=== PATIENT | male | born 1950 | race Caucasian/White ===

== ENCOUNTER 2023-08-16 09:23 | Inpatient (IN) ==
--- NOTE | 2023-08-16 09:44 | DR.URIAD ---
HPI Time Seen Time Seen by Provider: 08/16/23 09:43 PCP Primary Care Physician: Ellie Mendoza Complaint Chief Complaint Doctors Comments: Patient states that he can't breath. He has been feeling sob x 2 weeks. 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 Patient states that he has also has cough productive of yellow sputum and weakness. He presents because he has worsening SOB today. Patient denies: fever,n,v,chest pain,abdl pain,back pain,syncope.Patient does not have supplemental 02 at home. Chief Complaint:: Shortness of breath and congestion Self Treatment fo Chief Complaint: Rescue Inhaler COVID-19 Coronavirus risk:travel/contact w/high risk person: No Has patient experienced Coronavirus symptoms: No Source History Provided: Patient Mode of Arrival Mode of Arrival: Ambulatory Timing Onset of Chief Complaint: 08/10/23 PMH PMH Past Medical History: Yes Past Medical History: Arthritis Past Surgical History: Yes Surgical History: Appendectomy and Tonsillectomy Past Surgical History Comment: Stomach removal, Gtube-placement and removal Family History History of Family Medical Conditions: Yes Family Medical History: Diabetes Mellitus, Cancer, [place], Heart Failure and Hypertension Social History Alcohol Use: None Do you use any recreational Drugs:: No Lives With: Spouse Lives Where: Home Travel Risk Coronavirus risk:travel/contact w/high risk person: No Has patient experienced Coronavirus symptoms: No Infectious screening Have you traveled outside the country in the last 6 months?: No Isolation: Standard ROS Review of Systems Constitutional: No Symptoms Reported Eyes: No Symptoms Reported ENTM: No Symptoms Reported Respiratoy: Productive Cough (yellow) and Short of Breath Cardiovascular: No Symptoms Reported Gastrointestinal/Abdominal: No Symptoms Reported Genitourinary: No Symptoms Reported Neurological: No Symptoms Reported Musculoskeletal: No Symptoms Reported Integumentary: No Symptoms Reported Hematologic/Lymphatic: No Symptoms Reported Endocrine: No Symptoms Reported Psychiatric: No Symptoms Reported All Other Systems: Reviewed and Negative PE Vital Signs Vitals: Vital Signs Temperature 97.6 F Pulse Rate 76 Pulse Rate 76 Respiratory Rate 18 Blood Pressure 137/65 O2 Sat by Pulse Oximetry 95 O2 Sat by Pulse Oximetry 95 General Limitations: No Limitations General Appearance: Alert and In No Apparent Distress Head Head Exam: Normal Inspection Eyes Eye exam: Normal Appearance ENT ENT Exam: Normal Exam External Ear Exam: Normal External Inspection TM/Canal Exam: Bilateral: Normal Nose Exam: Normal Nose Exam Nasal Speculum Exam: Bilateral: Normal Mouth Exam: Normal Inspection Throat Exam: Normal Inspection Neck Neck Exam: Normal Inspection Chest Chest Inspection: Normal Inspection Respiratory Respiratory Exam: Normal Lung Sounds Bilat Respiratory Exam: Bilateral: Clear to Auscultation Cardiovascular Cardiovascular Exam: Regular Rate and Normal Rhythm Abdominal Exam Abdominal Exam: Normal Inspection, Normal Bowel Sounds and Soft Extremeties Extremities Exam: Normal Inspection Back Back Exam: Normal Inspection Neurologic Neurological Exam: Alert and Oriented X3 Psychiatric Psychiatric Exam: Normal Affect and Normal Mood Skin Skin Exam: Warm, Dry, Intact and Normal Color MDM Differential Diagnosis Differential Diagnosis: Influenza A, Influenza B, Pneumonia and URI (Covid- 19,RSV) COURSE Treatment Treatment: Patient states that he had stomach cancer ( diagnosd 03/2011) and had Radiation therapy and chemotherapy. He states that he is scanned once a yr. Patient states that he was told that he has scarring in his lungs. Patient's CXR was read by the radiologist as Bilateral Pneumonia with small Pleural effusions. Patient will be given levaquin 750mg iv. He has received duonebs x 2,solumedrol 125mg iv. Dr Quevedo was consulted and has accepted patient to his service. Patient has been stable in the ED. [facility] Labs Reviewed 08/16/23 11:30 08/16/23 11:30 Laboratory: WBC 8.5 X10^3/uL (3.6-10.0) 08/16/23 11:30 RBC 3.82 X10^6/uL (4.7-6.0) L 08/16/23 11:30 Hgb 11.6 g/dL (13.5-18.0) L 08/16/23 11:30 Hct 34.9 % (42.0-54.0) L 08/16/23 11:30 MCV 91.3 fL (80.0-100.0) 08/16/23 11:30 MCH 30.3 pg (27.0-34.0) 08/16/23 11:30 MCHC 33.2 g/dL (33.0-35.0) 08/16/23 11:30 RDW 14.4 % (11.6-16.5) 08/16/23 11:30 Plt Count 260 X10^3/uL (150.0-450.0) 08/16/23 11:30 Plt Count Comment Adequate (ADEQUATE) 08/16/23 11:30 MPV 9.8 fL (7.4-11.0) 08/16/23 11:30 Neut % (Auto) 86.5 % (42.0-75.0) H 08/16/23 11:30 Lymph % (Auto) 6.2 % (21.0-51.0) L 08/16/23 11:30 [place] % (Auto) 5.7 % (0.0-13.0) 08/16/23 11:30 Eos % (Auto) 0.8 % (0.9-2.9) L 08/16/23 11:30 Baso % (Auto) 0.8 % (0.2-1.0) 08/16/23 11:30 Neut # (Auto) 6.9 x10^3/uL (2.2-4.8) H 08/16/23 11:30 Lymph # (Auto) 0.5 X10^3/uL (1.3-2.9) L 08/16/23 11:30 [place] # (Auto) 0.5 x10^3/uL (0.3-0.8) 08/16/23 11:30 Eos # (Auto) 0.1 x10^3/uL (0.0-0.2) 08/16/23 11:30 Baso # (Auto) 0.1 X10^3/uL (0.0-0.1) 08/16/23 11:30 Absolute Nucleated RBC 0.5 /100WBC 08/16/23 11:30 Plt Morphology Comment Normal (NORMAL) 08/16/23 11:30 RBC Morphology Normal (NORMAL) 08/16/23 11:30 Sample Site Rrad 08/16/23 11:45 ABG pH 7.400 (7.35-7.45) 08/16/23 11:45 ABG pCO2 36.0 mmHg (35.0-45.0) 08/16/23 11:45 ABG pO2 59.0 mmHg (80.0-100.0) L 08/16/23 11:45 ABG HCO3 22.3 mmol/L (22-26) 08/16/23 11:45 ABG O2 Saturation 90.0 % (90-100) 08/16/23 11:45 ABG Base Excess -2.1 mmol/L (-2.0-2.0) L 08/16/23 11:45 Dimas Test Pos 08/16/23 11:45 A-a Gradient 46.0 mmHg 08/16/23 11:45 FiO2 21.0 08/16/23 11:45 Blood Gas Comments Pt joaquin well elj cdn 08/16/23 11:45 Sodium 137 mmol/L (136-145) 08/16/23 11:30 Corrected Sodium TNP 08/16/23 11:30 Potassium 4.6 mmol/L (3.5-5.1) 08/16/23 11:30 Chloride 102 mmol/L (98-107) 08/16/23 11:30 Carbon Dioxide 25.4 mmol/L (21-32) 08/16/23 11:30 BUN 24 mg/dL (7-18) H 08/16/23 11:30 Creatinine 1.94 mg/dL (0.70-1.30) H 08/16/23 11:30 Est GFR (MDRD) Af Amer 44 (>60) L 08/16/23 11:30 Est GFR (MDRD) Non-Af 36 (>60) L 08/16/23 11:30 Glucose 106 mg/dL (65-99) H 08/16/23 11:30 Calcium 8.5 mg/dL (8.5-10.1) 08/16/23 11:30 Corrected Calcium 9.3 mg/dL (8.5-10.1) 08/16/23 11:30 Total Bilirubin 0.50 mg/dL (0.2-1.0) 08/16/23 11:30 AST 27 Units/L (15-37) 08/16/23 11:30 ALT 12 Units/L (12-78) 08/16/23 11:30 Alkaline Phosphatase 137 Units/L (46-116) H 08/16/23 11:30 Total Protein 7.8 g/dL (6.4-8.2) 08/16/23 11:30 Albumin 3.0 g/dL (3.4-5.0) L 08/16/23 11:30 Globulin 4.8 g/dL (2.5-4.5) H 08/16/23 11:30 Albumin/Globulin Ratio 0.6 Ratio (1.1-2.1) L 08/16/23 11:30 SARS-CoV-2 (PCR) Negative (NEGATIVE) 08/16/23 09:41 Influenza Type A (PCR) Negative (NEGATIVE) 08/16/23 09:41 Influenza Type B (PCR) Negative (NEGATIVE) 08/16/23 09:41 RSV (PCR) Negative (NEGATIVE) 08/16/23 09:41 Opioid Opioid Risk Tool Age (Travis box if 16-45): No Total: 0 Total Score Risk Category: Low Risk Copyright: [facility] predicting aberrant behaviors Discharge Plan Diagnosis Discharge Problem: Bilateral pneumonia, Acute exacerbation of chronic bronchitis, Hypoxemia Discharge Plan Patient Disposition: ADMITTED INPATIENT Condition: Stable Prescriptions: No Action morphine 10 mg/5 mL solution 15 mg PO Q4H escitalopram oxalate 10 mg tablet 10 mg PO QDAY Health Concerns: Post Hospitalization: new medications and changes needed to prevent readmission or further decline. Pt educated and given instructions on all concerns. Plan of Treatment: Continue with present treatment and follow up plan. Pt is to keep follow up appointment as instructed and take medications as ordered. Orders to Discharge Patient Discharge Orders: Transfer (Routine); Ordered 08/16/23 Ordered By: Carrie Mensah Follow ups/Referrals Follow ups/Referrals: JACKLYN CARREON [Primary Care Provider] - 3 days Instructions Stand Alone Forms: Post Hospital Follow Up Care
[2023-08-16] MEDS ORDERED: DUONEB 0.5 MG/3 MG (3 mL) NEB ONE (11:02)
[2023-08-16] MEDS: DUONEB 0.5 MG/3 MG (3 mL) NEB ONE ×2 (11:07→12:48)
[2023-08-16] MEDS: SOLU-Medrol 125 MG VIAL IVP ONE (11:09)
[2023-08-16] MEDS: SOLU-Medrol 125 MG VIAL IM ONE (11:10)
[2023-08-16 11:50] LABS: ABG BASE EXCESS -2.1 mmol/L (-2.0-2.0); ABG HCO3 22.3 mmol/L (22-26)
[2023-08-16 11:51] LABS: ABG ALLEN TEST POS
[2023-08-16 11:58] LABS: BASOPHILS # (AUTO) 0.1 X10^3/uL (0.0-0.1); EOSINOPHILS # (AUTO) 0.1 x10^3/uL (0.0-0.2); MEAN CORPUSCULAR HEMOGLOBIN 30.3 pg (27.0-34.0)
[2023-08-16 12:03] LABS: BASOPHILS % (AUTO) 0.8 % (0.2-1.0); EOSINOPHILS % (AUTO) 0.8 % (0.9-2.9); HEMATOCRIT 34.9 % (42.0-54.0); HEMOGLOBIN 11.6 g/dL (13.5-18.0); LYMPHOCYTES # (AUTO) 0.5 X10^3/uL (1.3-2.9); LYMPHOCYTES % (AUTO) 6.2 % (21.0-51.0); MEAN CORPUSCULAR HGB CONC 33.2 g/dL (33.0-35.0); MEAN CORPUSCULAR VOLUME 91.3 fL (80.0-100.0); MEAN PLATELET VOLUME 9.8 fL (7.4-11.0); MONOCYTES # (AUTO) 0.5 x10^3/uL (0.3-0.8); MONOCYTES % (AUTO) 5.7 % (0.0-13.0); NEUTROPHILS # (AUTO) 6.9 x10^3/uL (2.2-4.8); NEUTROPHILS % (AUTO) 86.5 % (42.0-75.0); PLATELET COUNT 260 X10^3/uL (150.0-450.0); RED BLOOD COUNT 3.82 X10^6/uL (4.7-6.0); RED CELL DISTRIBUTION WIDTH 14.4 % (11.6-16.5)
[2023-08-16 12:06] LABS: ALANINE AMINOTRANSFERASE 12 Units/L (12-78); ALKALINE PHOSPHATASE 137 Units/L (46-116); ASPARTATE AMINO TRANSFERASE 27 Units/L (15-37); BLOOD UREA NITROGEN 24 mg/dL (7-18); CALCIUM 8.5 mg/dL (8.5-10.1); CARBON DIOXIDE 25.4 mmol/L (21-32); CHLORIDE 102 mmol/L (98-107); COR CA(FOR HYPOALB) 9.3 mg/dL (8.5-10.1); CREATININE 1.94 mg/dL (0.70-1.30); GLUCOSE 106 mg/dL (65-99); POTASSIUM 4.6 mmol/L (3.5-5.1); SODIUM 137 mmol/L (136-145); TOTAL PROTEIN 7.8 g/dL (6.4-8.2); eGFR NON BLACK RACES 36 (>60)
[2023-08-16 12:27] LABS: PLATELET MORPHOLOGY COMMENT NORMAL (NORMAL)
[2023-08-16 12:28] LABS: WHITE BLOOD COUNT 8.5 X10^3/uL (3.6-10.0)
--- NOTE | 2023-08-16 12:46 | RAD ---
EXAM:CHEST, 1 VIEWHISTORY:Shortness of breath and congestion; cough productive green sputumCOMPARISON:None.FINDINGS:SUPPORT DEVICES: None.HEART/MEDIASTINUM: No significant abnormality.LUNGS: Small pleural effusions with bilateral airspace opacities seen mainly along the mid to lower lungs. No pneumothorax.ADDITIONAL FINDINGS: None.IMPRESSION:Suspected bilateral pneumonia with small pleural effusions.THIS IS AN ELECTRONICALLY VERIFIED FINAL REPORT08/16/2023 12:44 PM - Electronically signed by Sergio Campbell MD
--- NOTE | 2023-08-16 13:16 | DR.URIAD ---
HPI Time Seen Time Seen by Provider: 08/16/23 09:43 PCP Primary Care Physician: Ellie Mendoza Complaint Chief Complaint:: Shortness of breath and congestion Self Treatment fo Chief Complaint: Rescue Inhaler COVID-19 Coronavirus risk:travel/contact w/high risk person: No Has patient experienced Coronavirus symptoms: No Source History Provided: Patient Mode of Arrival Mode of Arrival: Ambulatory Timing Onset of Chief Complaint: 08/10/23 PMH PMH Past Medical History: Yes Past Medical History: Arthritis Past Surgical History: Yes Surgical History: Appendectomy and Tonsillectomy Past Surgical History Comment: Stomach removal, Gtube-placement and removal Family History History of Family Medical Conditions: Yes Family Medical History: Diabetes Mellitus, Cancer, [place], Heart Failure and Hypertension Social History Alcohol Use: None Do you use any recreational Drugs:: No Lives With: Spouse Lives Where: Home Travel Risk Coronavirus risk:travel/contact w/high risk person: No Has patient experienced Coronavirus symptoms: No Infectious screening Have you traveled outside the country in the last 6 months?: No Isolation: Standard PE Vital Signs Vitals: Vital Signs Temperature 97.6 F Pulse Rate 76 Pulse Rate 76 Respiratory Rate 18 Blood Pressure 137/65 O2 Sat by Pulse Oximetry 95 O2 Sat by Pulse Oximetry 95 ROR Labs Reviewed 08/16/23 11:30 08/16/23 11:30 Laboratory: WBC 8.5 X10^3/uL (3.6-10.0) 08/16/23 11:30 RBC 3.82 X10^6/uL (4.7-6.0) L 08/16/23 11:30 Hgb 11.6 g/dL (13.5-18.0) L 08/16/23 11:30 Hct 34.9 % (42.0-54.0) L 08/16/23 11:30 MCV 91.3 fL (80.0-100.0) 08/16/23 11:30 MCH 30.3 pg (27.0-34.0) 08/16/23 11:30 MCHC 33.2 g/dL (33.0-35.0) 08/16/23 11:30 RDW 14.4 % (11.6-16.5) 08/16/23 11:30 Plt Count 260 X10^3/uL (150.0-450.0) 08/16/23 11:30 Plt Count Comment Adequate (ADEQUATE) 08/16/23 11:30 MPV 9.8 fL (7.4-11.0) 08/16/23 11:30 Neut % (Auto) 86.5 % (42.0-75.0) H 08/16/23 11:30 Lymph % (Auto) 6.2 % (21.0-51.0) L 08/16/23 11:30 [place] % (Auto) 5.7 % (0.0-13.0) 08/16/23 11:30 Eos % (Auto) 0.8 % (0.9-2.9) L 08/16/23 11:30 Baso % (Auto) 0.8 % (0.2-1.0) 08/16/23 11:30 Neut # (Auto) 6.9 x10^3/uL (2.2-4.8) H 08/16/23 11:30 Lymph # (Auto) 0.5 X10^3/uL (1.3-2.9) L 08/16/23 11:30 [place] # (Auto) 0.5 x10^3/uL (0.3-0.8) 08/16/23 11:30 Eos # (Auto) 0.1 x10^3/uL (0.0-0.2) 08/16/23 11:30 Baso # (Auto) 0.1 X10^3/uL (0.0-0.1) 08/16/23 11:30 Absolute Nucleated RBC 0.5 /100WBC 08/16/23 11:30 Plt Morphology Comment Normal (NORMAL) 08/16/23 11:30 RBC Morphology Normal (NORMAL) 08/16/23 11:30 Sample Site Rrad 08/16/23 11:45 ABG pH 7.400 (7.35-7.45) 08/16/23 11:45 ABG pCO2 36.0 mmHg (35.0-45.0) 08/16/23 11:45 ABG pO2 59.0 mmHg (80.0-100.0) L 08/16/23 11:45 ABG HCO3 22.3 mmol/L (22-26) 08/16/23 11:45 ABG O2 Saturation 90.0 % (90-100) 08/16/23 11:45 ABG Base Excess -2.1 mmol/L (-2.0-2.0) L 08/16/23 11:45 Dimas Test Pos 08/16/23 11:45 A-a Gradient 46.0 mmHg 08/16/23 11:45 FiO2 21.0 08/16/23 11:45 Blood Gas Comments Pt joaquin well elj cdn 08/16/23 11:45 Sodium 137 mmol/L (136-145) 08/16/23 11:30 Corrected Sodium TNP 08/16/23 11:30 Potassium 4.6 mmol/L (3.5-5.1) 08/16/23 11:30 Chloride 102 mmol/L (98-107) 08/16/23 11:30 Carbon Dioxide 25.4 mmol/L (21-32) 08/16/23 11:30 BUN 24 mg/dL (7-18) H 08/16/23 11:30 Creatinine 1.94 mg/dL (0.70-1.30) H 08/16/23 11:30 Est GFR (MDRD) Af Amer 44 (>60) L 08/16/23 11:30 Est GFR (MDRD) Non-Af 36 (>60) L 08/16/23 11:30 Glucose 106 mg/dL (65-99) H 08/16/23 11:30 Calcium 8.5 mg/dL (8.5-10.1) 08/16/23 11:30 Corrected Calcium 9.3 mg/dL (8.5-10.1) 08/16/23 11:30 Total Bilirubin 0.50 mg/dL (0.2-1.0) 08/16/23 11:30 AST 27 Units/L (15-37) 08/16/23 11:30 ALT 12 Units/L (12-78) 08/16/23 11:30 Alkaline Phosphatase 137 Units/L (46-116) H 08/16/23 11:30 Total Protein 7.8 g/dL (6.4-8.2) 08/16/23 11:30 Albumin 3.0 g/dL (3.4-5.0) L 08/16/23 11:30 Globulin 4.8 g/dL (2.5-4.5) H 08/16/23 11:30 Albumin/Globulin Ratio 0.6 Ratio (1.1-2.1) L 08/16/23 11:30 SARS-CoV-2 (PCR) Negative (NEGATIVE) 08/16/23 09:41 Influenza Type A (PCR) Negative (NEGATIVE) 08/16/23 09:41 Influenza Type B (PCR) Negative (NEGATIVE) 08/16/23 09:41 RSV (PCR) Negative (NEGATIVE) 08/16/23 09:41 Opioid Opioid Risk Tool Age (Travis box if 16-45): No Total: 0 Total Score Risk Category: Low Risk Copyright: [facility] predicting aberrant behaviors Discharge Plan Diagnosis Discharge Problem: Bilateral pneumonia, Acute exacerbation of chronic bronchitis, Hypoxemia Discharge Plan Patient Disposition: ADMITTED INPATIENT Condition: Stable Orders to Discharge Patient Discharge Orders: Transfer (Routine); Ordered 08/16/23 Ordered By: Carrie Mensah
[2023-08-16] MEDS: SOLU-Medrol 40 MG VIAL IVP SCH (15:38)
[2023-08-16] MEDS: MORPHINE 10 MG/5 ML PO SCH (15:42)
[2023-08-16] MEDS: NS 1,000 ML IV 1,000 ML IV SCH (15:54)
[2023-08-16] MEDS: LEVAQUIN PREMIX IV 750 MG 750 MG/150 ML BAG IV SCH (15:55)
[2023-08-16] MEDS: DUONEB 0.5 MG/3 MG (3 mL) NEB SCH (16:11)
[2023-08-16] MEDS: MORPHINE SULFATE ORAL SOLN UDC PO SCH (17:43)
[2023-08-17] MEDS ORDERED: MORPHINE SULFATE ORAL SOLN UDC PO PRN (01:36)
[2023-08-17 05:55] LABS: BASOPHILS # (AUTO) 0.1 X10^3/uL (0.0-0.1); HEMATOCRIT 30.3 % (42.0-54.0); HEMOGLOBIN 9.9 g/dL (13.5-18.0); LYMPHOCYTES # (AUTO) 0.2 X10^3/uL (1.3-2.9); LYMPHOCYTES % (AUTO) 1.4 % (21.0-51.0); MEAN CORPUSCULAR HGB CONC 32.7 g/dL (33.0-35.0); MEAN CORPUSCULAR VOLUME 91.9 fL (80.0-100.0); MEAN PLATELET VOLUME 9.2 fL (7.4-11.0); MONOCYTES # (AUTO) 0.6 x10^3/uL (0.3-0.8); MONOCYTES % (AUTO) 3.9 % (0.0-13.0); NEUTROPHILS # (AUTO) 13.3 x10^3/uL (2.2-4.8); NEUTROPHILS % (AUTO) 93.7 % (42.0-75.0); PLATELET COUNT 241 X10^3/uL (150.0-450.0); RED CELL DISTRIBUTION WIDTH 14.3 % (11.6-16.5); WHITE BLOOD COUNT 14.2 X10^3/uL (3.6-10.0)
[2023-08-17 06:10] LABS: ALBUMIN 2.5 g/dL (3.4-5.0); CALCIUM 8.4 mg/dL (8.5-10.1); CARBON DIOXIDE 24.5 mmol/L (21-32); COR CA(FOR HYPOALB) 9.6 mg/dL (8.5-10.1); CREATININE 2.04 mg/dL (0.70-1.30); TOTAL PROTEIN 6.8 g/dL (6.4-8.2)
[2023-08-17 06:14] LABS: PLATELET MORPHOLOGY COMMENT NORMAL (NORMAL)
[2023-08-17 06:15] LABS: POTASSIUM 5.2 mmol/L (3.5-5.1)
[2023-08-17] MEDS: SOLU-Medrol 125 MG VIAL ONE (07:23)
[2023-08-17] MEDS: DUONEB 0.5 MG/3 MG (3 mL) NEB ONE (07:24)
[2023-08-17] MEDS ORDERED: LEXAPRO ONE (08:33)
[2023-08-17] MEDS: LEXAPRO PO SCH (09:00)
[2023-08-17] MEDS: MORPHINE SULFATE ORAL SOLN CONC PO PRN (09:12)
[2023-08-17] MEDS: PULMICORT NEB TX 0.5 MG NEB SCH (09:41)
[2023-08-17] MEDS: TYGACIL 50 MG VIAL 100 MG in NS 100 ML IV 100 ML IV ONE (09:48)
[2023-08-17] MEDS: LOVENOX INJ 30 MG SYR SC SCH (09:49)
[2023-08-17] MEDS: TYGACIL 50 MG VIAL 50 MG in NS 100 ML IV 100 ML IV SCH (20:00)
[2023-08-18 05:59] LABS: BASOPHILS # (AUTO) 0.1 X10^3/uL (0.0-0.1); BASOPHILS % (AUTO) 0.3 % (0.2-1.0); HEMATOCRIT 31.6 % (42.0-54.0); HEMOGLOBIN 10.5 g/dL (13.5-18.0); LYMPHOCYTES # (AUTO) 0.4 X10^3/uL (1.3-2.9); LYMPHOCYTES % (AUTO) 2.1 % (21.0-51.0); MEAN CORPUSCULAR HEMOGLOBIN 30.4 pg (27.0-34.0); MEAN CORPUSCULAR HGB CONC 33.2 g/dL (33.0-35.0); MEAN CORPUSCULAR VOLUME 91.4 fL (80.0-100.0); MEAN PLATELET VOLUME 9.3 fL (7.4-11.0); MONOCYTES # (AUTO) 1.1 x10^3/uL (0.3-0.8); MONOCYTES % (AUTO) 5.8 % (0.0-13.0); NEUTROPHILS # (AUTO) 17.8 x10^3/uL (2.2-4.8); NEUTROPHILS % (AUTO) 91.8 % (42.0-75.0); PLATELET COUNT 243 X10^3/uL (150.0-450.0); RED BLOOD COUNT 3.46 X10^6/uL (4.7-6.0); RED CELL DISTRIBUTION WIDTH 14.6 % (11.6-16.5); WHITE BLOOD COUNT 19.4 X10^3/uL (3.6-10.0)
[2023-08-18 06:15] LABS: ALBUMIN 2.5 g/dL (3.4-5.0); CALCIUM 8.3 mg/dL (8.5-10.1); CARBON DIOXIDE 23.2 mmol/L (21-32); COR CA(FOR HYPOALB) 9.5 mg/dL (8.5-10.1); CREATININE 2.08 mg/dL (0.70-1.30); POTASSIUM 5.1 mmol/L (3.5-5.1); TOTAL PROTEIN 6.9 g/dL (6.4-8.2)
[2023-08-18 06:24] LABS: BAND NEUTROPHILS % 3 % (0-10); PLATELET MORPHOLOGY COMMENT NORMAL (NORMAL)
[2023-08-18] MEDS ORDERED: LASIX IVP ONE (06:46)
[2023-08-18] MEDS: LASIX IVP ONE (07:02)
--- NOTE | 2023-08-18 08:17 | RAD ---
EXAM: Portable AP chest HISTORY: Short of breath low oxygen COMPARISON: 08/16/2023 FINDINGS: Heart size remains normal. Bibasal opacities again noted consistent with pneumonia and pleural effu sions. Increasing confluence airspace involvement of the left upper lobe now noted. No pneumothorax seen. IMPRESSION: No interval change except for increasing airspace disease/ pneumonia in the left upper lobe. THIS IS AN ELECTRONICALLY VERIFIED FINAL REPORT 08/18/2023 8:06 AM - Electronically signed by Colin Curtis MD
[2023-08-18] MEDS ORDERED: LEXAPRO ONE (08:22)
[2023-08-18] MEDS ORDERED: NS 250 ML IV 25 ML IV PRN (09:35)
[2023-08-18] MEDS ORDERED: PHARMACY CONSULT - VANCOMYCIN XX SCH (10:00)
[2023-08-18] MEDS: NS 1,000 ML IV 1,000 ML IV ONE (10:31)
[2023-08-18] MEDS: VANCOMYCIN IV *PREMIX 750 mg/150 ML BAG 750 MG/150 ML PIGGYBACK IV SCH (10:35)
[2023-08-18] MEDS: ZOSYN VIAL 3.375 GRAMS 3.375 G in NS 100 ML IV 100 ML IV SCH (10:35)
[2023-08-18] MEDS: LR 1,000 ML IV 1,000 ML IV SCH (13:15)
[2023-08-18 15:43] VITALS: BMI 19.3
[2023-08-18] MEDS: NS 250 ML IV 250 ML IV PRN (21:36)
[2023-08-19 05:11] LABS: BASOPHILS % (AUTO) 0.3 % (0.2-1.0); HEMOGLOBIN 10.1 g/dL (13.5-18.0); LYMPHOCYTES # (AUTO) 0.3 X10^3/uL (1.3-2.9); LYMPHOCYTES % (AUTO) 2.4 % (21.0-51.0)
[2023-08-19 05:22] LABS: ALANINE AMINOTRANSFERASE 9 Units/L (12-78); ALBUMIN 2.2 g/dL (3.4-5.0); ALKALINE PHOSPHATASE 104 Units/L (46-116); ASPARTATE AMINO TRANSFERASE 17 Units/L (15-37); BLOOD UREA NITROGEN 59 mg/dL (7-18); CALCIUM 8.1 mg/dL (8.5-10.1); CARBON DIOXIDE 26.7 mmol/L (21-32); CHLORIDE 107 mmol/L (98-107); COR CA(FOR HYPOALB) 9.5 mg/dL (8.5-10.1); CREATININE 2.21 mg/dL (0.70-1.30); GLUCOSE 104 mg/dL (65-99); POTASSIUM 4.9 mmol/L (3.5-5.1); SODIUM 141 mmol/L (136-145); TOTAL PROTEIN 6.2 g/dL (6.4-8.2); eGFR NON BLACK RACES 31 (>60)
[2023-08-19 05:23] LABS: EOSINOPHILS % (AUTO) 0.3 % (0.9-2.9); HEMATOCRIT 30.5 % (42.0-54.0); MEAN CORPUSCULAR HEMOGLOBIN 30.3 pg (27.0-34.0); MEAN CORPUSCULAR HGB CONC 33.1 g/dL (33.0-35.0); MEAN CORPUSCULAR VOLUME 91.5 fL (80.0-100.0); MEAN PLATELET VOLUME 9.5 fL (7.4-11.0); MONOCYTES # (AUTO) 0.8 x10^3/uL (0.3-0.8); MONOCYTES % (AUTO) 5.9 % (0.0-13.0); NEUTROPHILS # (AUTO) 11.9 x10^3/uL (2.2-4.8); NEUTROPHILS % (AUTO) 91.1 % (42.0-75.0); PLATELET COUNT 231 X10^3/uL (150.0-450.0); RED BLOOD COUNT 3.33 X10^6/uL (4.7-6.0); RED CELL DISTRIBUTION WIDTH 14.4 % (11.6-16.5); WHITE BLOOD COUNT 13.1 X10^3/uL (3.6-10.0)
[2023-08-19 05:37] LABS: BAND NEUTROPHILS % 1 % (0-10)
[2023-08-19 05:38] LABS: PLATELET MORPHOLOGY COMMENT NORMAL (NORMAL)
[2023-08-19] MEDS ORDERED: LEXAPRO ONE (08:13)
[2023-08-19 09:01] LABS: CREATININE 2.26 mg/dL (0.70-1.30)
[2023-08-19] MEDS: PHARMACY COMMENT IV SCH (09:37)
[2023-08-19] MEDS: PULMICORT NEB TX 0.5 MG NEB SCH (09:59)
[2023-08-19] MEDS: PULMICORT NEB TX 0.5 MG NEB ONE (10:11)
[2023-08-19] MEDS: NS 1,000 ML IV 2,000 ML IV ONE (10:14)
[2023-08-19] MEDS: VANCOMYCIN IV *PREMIX 1 G/200 ML BAG 1 G/200 ML PIGGYBACK IV SCH (10:14)
--- NOTE | 2023-08-19 22:52 | RAD ---
EXAM: CHEST, 1 VIEW HISTORY: short of breath; COMPARISON: August 18, 2023 TECHNIQUE: Chest radiographic imaging, AP portable projection, 1 image FINDINGS: Elevation of the right diaphragm. Airspace disease an effusion in the right lung base. Diffuse airspace opacities in the left lung. Diffuse increased interstitial markings. No acute osseous abnormality. No pneumothorax. IMPRESSION: No significant interval acute cardiopulmonary changes. THIS IS AN ELECTRONICALLY VERIFIED FINAL REPORT 08/19/2023 10:49 PM - Electronically signed by Ronald Santo MD
[2023-08-19] MEDS: COREG TAB 12.5 MG PO SCH (23:48)
--- NOTE | 2023-08-20 06:06 | RAD ---
EXAM:CHEST, 1 VIEWHISTORY:PNEUMONIA; ARTHRITIS SX: APPY, TONSILS, STOMACH REMOVAL, GTUBE PLACEMENTCOMPARISON:08/19/2023FINDINGS:T he trachea is midline. There is persistent elevation of the right hemidiaphragm. The cardiac silhouette is unremarkable. Diffuse airspace disease throughout the left lung. There is small left pleural effusion.. Biapical pleural thickening. The bony thorax is unremarkable.IMPRESSION:Stable portable chestTHIS IS AN ELECTRONICALLY VERIFIED FINAL REPORT08/20/2023 6:03 AM - Electronically signed by Dipak Riggins MD
[2023-08-20 06:18] LABS: BASOPHILS % (AUTO) 0.2 % (0.2-1.0); EOSINOPHILS % (AUTO) 0.3 % (0.9-2.9); HEMATOCRIT 30.3 % (42.0-54.0); HEMOGLOBIN 10.2 g/dL (13.5-18.0); LYMPHOCYTES # (AUTO) 0.3 X10^3/uL (1.3-2.9); LYMPHOCYTES % (AUTO) 3.7 % (21.0-51.0); MEAN CORPUSCULAR HEMOGLOBIN 30.8 pg (27.0-34.0); MEAN CORPUSCULAR HGB CONC 33.6 g/dL (33.0-35.0); MEAN CORPUSCULAR VOLUME 91.8 fL (80.0-100.0); MEAN PLATELET VOLUME 9.3 fL (7.4-11.0); MONOCYTES # (AUTO) 0.6 x10^3/uL (0.3-0.8); MONOCYTES % (AUTO) 6.2 % (0.0-13.0); NEUTROPHILS # (AUTO) 8.1 x10^3/uL (2.2-4.8); NEUTROPHILS % (AUTO) 89.6 % (42.0-75.0); PLATELET COUNT 214 X10^3/uL (150.0-450.0); RED BLOOD COUNT 3.31 X10^6/uL (4.7-6.0); RED CELL DISTRIBUTION WIDTH 14.9 % (11.6-16.5)
[2023-08-20 06:22] LABS: ALBUMIN 2.1 g/dL (3.4-5.0); CARBON DIOXIDE 24.1 mmol/L (21-32); COR CA(FOR HYPOALB) 9.5 mg/dL (8.5-10.1); CREATININE 2.02 mg/dL (0.70-1.30); POTASSIUM 4.8 mmol/L (3.5-5.1); TOTAL PROTEIN 6.1 g/dL (6.4-8.2)
[2023-08-20] MEDS ORDERED: LEXAPRO ONE (08:09)
[2023-08-20] MEDS: PHARMACY COMMENT IV SCH (09:31)
[2023-08-20] MEDS ORDERED: DIFLUCAN 200 MG IV PREMIX* 200 MG/100 ML BAG IV SCH (10:00)
[2023-08-20] MEDS: LEVAQUIN PREMIX IV 750 MG 750 MG/150 ML BAG IV SCH (10:21)
[2023-08-20] MEDS: VALIUM PO PRN (10:21)
[2023-08-20] MEDS: SOLU-Cortef INJ IVP SCH (10:35)
[2023-08-20] MEDS: VALIUM INJ IVP PRN (10:36)
[2023-08-20 10:43] LABS: CREATININE 2.06 mg/dL (0.70-1.30); VANCOMYCIN,TROUGH 11.1 ug/mL (15-20)
[2023-08-20] MEDS: DIFLUCAN 100 MG IV (MIX by PHARMACY)* 100 MG/50 ML BAG IV SCH (10:52)
[2023-08-20] MEDS: MYCELEX TROCHE MT SCH (10:52)
[2023-08-20] MEDS: MORPHINE SULFATE ORAL SOLN CONC PO PRN (15:18)
[2023-08-21 04:59] LABS: ALBUMIN 1.8 g/dL (3.4-5.0); CALCIUM 7.8 mg/dL (8.5-10.1); CARBON DIOXIDE 24.5 mmol/L (21-32); COR CA(FOR HYPOALB) 9.6 mg/dL (8.5-10.1); TOTAL PROTEIN 5.4 g/dL (6.4-8.2)
[2023-08-21 05:07] LABS: BASOPHILS % (AUTO) 0.1 % (0.2-1.0); HEMATOCRIT 31.3 % (42.0-54.0); HEMOGLOBIN 10.5 g/dL (13.5-18.0); LYMPHOCYTES # (AUTO) 0.4 X10^3/uL (1.3-2.9); LYMPHOCYTES % (AUTO) 5.9 % (21.0-51.0); MEAN CORPUSCULAR HEMOGLOBIN 30.5 pg (27.0-34.0); MEAN CORPUSCULAR HGB CONC 33.4 g/dL (33.0-35.0); MEAN CORPUSCULAR VOLUME 91.3 fL (80.0-100.0); MEAN PLATELET VOLUME 9.5 fL (7.4-11.0); MONOCYTES # (AUTO) 0.4 x10^3/uL (0.3-0.8); MONOCYTES % (AUTO) 5.5 % (0.0-13.0); NEUTROPHILS # (AUTO) 5.9 x10^3/uL (2.2-4.8); NEUTROPHILS % (AUTO) 88.5 % (42.0-75.0); PLATELET COUNT 204 X10^3/uL (150.0-450.0); RED BLOOD COUNT 3.43 X10^6/uL (4.7-6.0); RED CELL DISTRIBUTION WIDTH 14.7 % (11.6-16.5); WHITE BLOOD COUNT 6.7 X10^3/uL (3.6-10.0)
[2023-08-21] MEDS ORDERED: LEXAPRO ONE (08:02)
[2023-08-21] MEDS: NS 1,000 ML IV 1,000 ML IV ONE (09:22)
[2023-08-21] MEDS: PROTONIX TAB 40 MG PO SCH (09:44)
[2023-08-21] MEDS: CYTOTEC PO SCH (09:44)
[2023-08-21 15:34] LABS: CALCIUM 7.7 mg/dL (8.5-10.1); CARBON DIOXIDE 22.9 mmol/L (21-32); CREATININE 2.09 mg/dL (0.70-1.30); POTASSIUM 4.7 mmol/L (3.5-5.1)
[2023-08-21 16:25] VITALS: BP 113/61; PULSE 59; RESP 20; TEMP 97.6; O2SAT 99
== END 2023-08-21 19:50 | disposition home or self-care (01) | DRG 194 ==
LOC: ER 09:23 → MED/SURG 09:23
PROVIDERS: ADMIT Obstetrics & Gynecology Obstetrics; ATTEND Obstetrics & Gynecology Obstetrics
DX: J90 Pleural effusion, not elsewhere classified; Z85.028 Personal history of other malignant neoplasm of stomach; J18.8 Other pneumonia, unspecified organism; R06.02 Shortness of breath; Z20.822 Contact with and (suspected) exposure to COVID-19; J20.8 Acute bronchitis due to other specified organisms; B96.29 Other Escherichia coli [E. coli] as the cause of diseases classified elsewhere